=== PATIENT | female | born 1980 | race Caucasian/White ===

== ENCOUNTER 2019-03-27 10:11 | Emergency (ER) | payer SELFPAY ==
[~2019-03-27] VITALS: Ht 170.2 cm; Wt 63.2 kg
[2019-03-27 10:23] VITALS: BP 149/77; PULSE 78; RESP 18; Ht 170.2 cm; Wt 63.2 kg
--- NOTE | 2019-03-27 11:40 | ERD ---
ER Documentation Chief Complaint Chief Complaint left pupil dilation since am, reactive bilateral lasix surgery x1wk HPI This patient is an otherwise healthy 38-year-old female presenting to the emergency department complaining of left pupil dilation since this morning. She states her pupil is reactive to light. She did have Lasix surgery approximately 1 week ago and she is worried this may be causing her symptoms. Symptoms are overall mild in severity. She denies any headache, weakness, dizziness, diplopia, eye redness, eye discharge, eye pain, Or other symptoms at this time. Patient does state that she has a follow-up appointment with her eye surgeon tomorrow. ROS All systems reviewed and are negative except as per history of present illness. Allergies Allergies: Coded Allergies: erythromycin base (Unverified Allergy, Unknown, rash, 03/27/19) PMhx/Soc History of Surgery: Yes (bilateral eye lasik surgery) Anesthesia Reaction: No Hx Miscellaneous Medical Probl: Yes (Chronic back pain) Hx Alcohol Use: Yes (social) Hx Substance Use: Yes (cbd oil) Hx Tobacco Use: Yes (uses vape) Smoking Status: Current some day smoker FmHx Family History: No diabetes Physical Exam Vitals Vital Signs Date Temp Pulse Resp B/P (MAP) Pulse Ox O2 O2 Flow FiO2 Time Delivery Rate 03/27/19 139/86 11:18 (103) 03/27/19 98.7 78 18 149/77 99 10:23 (101) Physical Exam Const: No acute distress Head: Atraumatic Eyes: Normal Conjunctiva. The left pupil is slightly dilated when compared to the right. Pupils are reactive to direct and consensual light bilaterally. Extraocular movements intact bilaterally. ENT: Normal External Ears, Nose and Mouth. Neck: Full range of motion. No meningismus. Resp: No respiratory distress. Skin: No petechiae or rashes Ext: No cyanosis, or edema Neur: Awake and alert Psych: Normal Mood and Affect Procedures/MDM 38-year-old female presenting to the emergency department complaining of a slightly dilated left pupil. Left pupil appears slightly dilated compared to the right On examination. The left pupil is directly and consensually reactive to light. Patient did have Lasix surgery approximately 1 week ago. This may be a complication secondary to that. Otherwise, the patient has no visual acuity d eficits. Visual acuity is 20/20 right, 20/20 left, 20/20 bilaterally. Patient's funduscopic exam is within normal limits. The patient can be safely discharged home with close follow-up with her eye surgeon tomorrow. Ophthalmologic Assessment: Patient's ocular symptoms have stabilized while they have been evaluated in the department and are appropriate for outpatient work up. No evidence of ruptured globe, retinal detachment, acute angle closure glaucoma, or deep space infection. Plan for 24 hour ophthalmologic follow up. Departure Diagnosis: Primary Impression: Eye problem Condition: Fair Patient Instructions: Refractive Surgery: LASIK Additional Instructions: SPECIALIST: YOU HAVE A MEDICAL CONDITION WHICH REQUIRES YOU TO SEE A SPECIALIST WITHIN THE NEXT 1-2 DAYS. PLEASE FOLLOW UP WITH YOUR PRIMARY PHYSICIAN FOR REFFERAL.IF YOU DO NOT HAVE A PRIMARY CARE PHYSICIAN AND/OR YOU CAN NOT AFFORD TO SEE A PHYSICIAN THE FOLLOWING RESOURCES HAVE BEEN SUPPLIED TO YOU. IT IS YOUR RESPONSIBILITY TO BE SEEN BY THE SPECIALIST:OPTHALMOLOGY YUE ALVARADO PA-C March 27, 2019 11:40
== END 2019-03-27 11:19 | disposition home or self-care (01) ==
LOC: FTE 10:11
DX: H57.9 Unspecified disorder of eye and adnexa (principal); F17.210 Nicotine dependence, cigarettes, uncomplicated
CPT/HCPCS: 99282